=== PATIENT | male | born 1965 | race Caucasian/White ===

== ENCOUNTER 2023-11-10 22:53 | Emergency (ER) | payer OTHER, MEDICAID ==
[~2023-11-10] VITALS: Ht 165.1 cm; Wt 61.2 kg
[2023-11-10 22:59] VITALS: BP_SYST 132; PULSE 98; RESP 18; TEMP 98.3; O2SAT 96
[2023-11-11] MEDS ORDERED: NAPR-690 PO (01:33)
== END 2023-11-11 01:38 | disposition home or self-care (01) ==
LOC: SED 22:53
DX: R07.89 Other chest pain (principal); F17.210 Nicotine dependence, cigarettes, uncomplicated; Z71.6 Tobacco abuse counseling
CPT/HCPCS: 71250-TC; 76376; 99284